=== PATIENT | female | born 1985 | race Caucasian/White ===

== ENCOUNTER 2018-01-27 18:12 | Emergency (ER) | payer OTHER, MEDICAID, SELFPAY ==
[2018-01-27 18:14] VITALS: BP 116/71; PULSE 124; RESP 20; TEMP 37.3; O2SAT 100
--- NOTE | 2018-01-27 18:20 | DI.RAD.S_ITS ---
PROCEDURE: XR ACUTE ABDOMEN SERIES INDICATIONS: abd pain/constipation/vomiting TECHNIQUE: One view chest and two views of the abdomen were acquired. COMPARISON: None. FINDINGS: Surgical changes and devices: None. Chest: Lungs are clear. Heart size is normal. No pleural effusions. No pneumoperitoneum. Abdomen: Bowel gas pattern is normal. No suspicious calcifications. Visualized solid organ contours appear normal. There is suggestion of fecal impaction in the region of sigmoid colon and rectum. Bones: No suspicious bony lesions. IMPRESSION: Suggestion of fecal impaction in rectosigmoid colon. No gross free air. Dictated by: Jose Kingsley M.D. on 01/27/2018 at 19:09 Approved by: Jose Kingsley M.D. on 01/27/2018 at 19:10
--- NOTE | 2018-01-27 20:14 | ED.ABDPAIN ---
HPI - Abdominal Pain General Chief Complaint: Abdominal Pain Stated Complaint: NO BOWEL MOVEMENT SEVERAL DAYS Time Seen by Provider: 01/27/18 19:51 Source: patient Mode of arrival: ambulatory Limitations: no limitations History of Present Illness HPI narrative: This is a 32-year-old female who comes in with complaint of 7 days of constipation patient states she has not been able have a bowel movement for 7 days just prior to my evaluation he states she had a very large bowel bruit resolved her abdominal pain and she feels much more comfortable now. Her abdominal pain was crampy, she still has some very slight residual crampy feeling but feels significantly better. Patient states that she has a history of IBS. She has had similar symptoms in the past. She was taking stool softeners as well as lactulose and several okyf-gys-hfmjkkr medications to try to help her have a bowel movement. She denies any black or bloody stool. She states it was a very large bowel movement. She denies any fevers. She has had some nausea and a little bit of vomiting last night but none today. She denies any abdominal surgeries or prior surgeries. Patient states that she was having a little bit of difficulty emptying her bladder but after the bowel movement that seems back to normal. Patient and I did review her films and the findings. She defers any further workup and would like to be discharged home. MD complaint: abdominal pain Onset (ago): day(s) Pain Consistency: constant Quality: cramping Relieving factors: bowel movement Associated symptoms: constipation Related Data Home Medications Medication Instructions Recorded Confirmed [PROPRANOLOL] 1 mg PO TID #0 11/02/10 clonazepam [Klonopin] 1 mg PO TID #0 11/02/10 carbamazepine [Epitol] 200 mg PO BID 01/27/18 01/27/18 Allergies Allergy/AdvReac Type Severity Reaction Status Date / Time buspirone Allergy Verified 01/27/18 18:17 latex Allergy Verified 01/27/18 18:17 Review of Systems Review of Systems All systems reviewed & are unremarkable except as noted in HPI and below Constitutional Denies chills, Denies fever(s), Denies lethargy and Denies weakness Cardiovascular Denies chest pain, Denies irregular heart rhythm, Denies lightheadedness, Denies palpitations, Denies dyspnea, Denies dyspnea on exertion and Denies orthopnea Respiratory Denies cough, Denies dyspnea, Denies dyspnea on exertion and Denies wheezing Gastrointestinal Gastrointestinal: Reports abdominal pain, Denies melena, Reports bloating, Denies hematochezia, Reports change in bowel habits, Reports constipation (No bowel movement for 7 days), Reports excessive flatus, Denies fecal incontinence, Denies diarrhea, Denies nausea and Reports vomiting Genitourinary Denies hematuria, Denies flank pain, Denies urinary incontinence and Denies urinary urgency Neurologic Denies weakness Endocrine Denies palpitations Allergic/Immunologic Denies wheezing Exam Initial Vital Signs Initial Vital Signs: Vital Signs Temperature 99.2 F 01/27/18 18:14 Pulse Rate 124 H 01/27/18 18:14 Respiratory Rate 20 01/27/18 18:14 Blood Pressure 116/71 01/27/18 18:14 Pulse Oximetry 100 01/27/18 18:14 Const General: cooperative, comfortable and well developed Nutritional Appearance: well nourished and obese Orientation: alert, awake, oriented x3 and not confused Chest Chest: normal inspection of the chest Resp Effort & Inspection: normal respiratory effort, able to speak in complete sentences, no respiratory distress and no use of accessory muscles Auscultation: clear to auscultation bilaterally, no rales, no rhonchi and no wheezes Cardio Rate: regular rate Rhythm: regular rhythm Heart Sounds: no click, no gallops, no murmurs and no rubs Pulses: normal peripheral pulses GI Inspection: non-distended Palpation: soft, no hepatosplenomegaly, No firm, No guarding, No mass, No pulsatile mass, No rigid and No tender Auscultation: normal bowel sounds Course Orders Ordered: ED Orders 01/27/18 18:20 XR acute abdomen series Stat Vital Signs - 8 hr 01/27/18 20:36 Temperature 98.1 F Pulse Rate 97 H Respiratory Rate 18 Blood Pressure 116/80 Pulse Oximetry 99 MDM - Abdominal Pain Imaging Data AAS: Radiologist's impression: Patient: Latricia Mariscal MR#: [id number] : 1985 Acct:[id number] Age/Sex: 32 / F Date of Service: 01/27/18 Loc: ED Accession Number: [id number] Procedure: XR acute abdomen series Ordering Provider: Jelly May D.O. PROCEDURE: XR ACUTE ABDOMEN SERIES INDICATIONS: abd pain/constipation/vomiting TECHNIQUE: One view chest and two views of the abdomen were acquired. COMPARISON: None. FINDINGS: Surgical changes and devices: None. Chest: Lungs are clear. Heart size is normal. No pleural effusions. No pneumoperitoneum. Abdomen: Bowel gas pattern is normal. No suspicious calcifications. Visualized solid organ contours appear normal. There is suggestion of fecal impaction in the region of sigmoid colon and rectum. Bones: No suspicious bony lesions. IMPRESSION: Suggestion of fecal impaction in rectosigmoid colon. No gross free air. Dictated by: Jose Kingsley M.D. on 01/27/2018 at 19:09 Approved by: Jose Kingsley M.D. on 01/27/2018 at 19:10 [facility] Narrative Medical decision making narrative: Patient was having symptoms that she has had previously before without having a bowel movement for approximately 1 week. Patient has been taking multiple gdog-qom-pbuqtiv or prescription medications in order to have a bowel movement and here in the emergency department she did have 1 just prior to being evaluated by myself patient symptomatically feels much better. Um her x-ray was reviewed on one view there were some air-fluid levels but on the additional views there were not present and patient had a very large bowel movement. Discussed with patient her imaging findings. We did give her the option of having some additional evaluation with lab work but she defers feels comfortable returning home at this time. Discharge Plan Departure Patient Disposition: Home Clinical Impression: Abdominal pain Discharge Date/Time: 01/27/18 20:37 Interventions: ED Discharge Assessment Last Done: 01/27/18 20:36 Instructions: DI for Abdominal Pain-Adult Activity Restrictions/Additional Instructions: Follow-up with her primary care in the next several days if your symptoms are not completely resolved. Continue to make sure you drink plenty of fluids and fiber. You may continue to use your home medications as needed for your symptoms. Prescriptions: No Action clonazepam [Klonopin] 1 MG tablet 1 mg PO TID Qty: 0 RF: 0 [PROPRANOLOL] 1 mg PO TID Qty: 0 RF: 0 carbamazepine [Epitol] 200 mg Tablet 200 mg PO BID RF: 0
--- NOTE | 2018-01-27 20:33 | PC.NURSE ---
pt stated I just went to the bathroom and had a huge #2. Provider notified, discharge orders received.
[2018-01-27 20:36] VITALS: BP 116/80; PULSE 97; RESP 18; TEMP 36.7; O2SAT 99
== END 2018-01-27 20:37 | disposition home or self-care (01) ==
PROVIDERS: Emergency Provider Emergency Medicine
DX: R10.9 Unspecified abdominal pain (principal)
CPT/HCPCS: 74022; 99282; 99283

== ENCOUNTER 2021-02-26 03:42 | Emergency (ER) | payer OTHER, MEDICAID, SELFPAY ==
[2021-02-26] VITALS (7 sets, daily range): BP systolic 150–169; BP diastolic 70–92; PULSE 100–109; RESP 18–20; TEMP 36.7; O2SAT 98–100; BMI 33.3
--- NOTE | 2021-02-26 03:55 | DI.RAD.S_ITS ---
PROCEDURE: XR KNEE LT 3V INDICATIONS: pain at fibular head after ankle inversion injury TECHNIQUE: 3 views of the knee were acquired. COMPARISON: [facility], CR, XR ANKLE LT MIN 3V, 02/26/2021, 4:01. FINDINGS: Bones: No fractures or dislocations. No suspicious bony lesions. The joint spaces are well preserved. Soft tissues: No joint effusion. No suspicious soft tissue calcifications. IMPRESSION: Negative for fracture. Note: No significant discrepancy from the preliminary report. Dictated by: Paul Hunt M.D. on 02/26/2021 at 7:24 Approved by: Paul Hunt M.D. on 02/26/2021 at 7:25
--- NOTE | 2021-02-26 03:55 | DI.RAD.S_ITS ---
PROCEDURE: XR ANKLE LT MIN 3V INDICATIONS: ankle injury, pain and swelling over lateral mall TECHNIQUE: 3 views of the ankle were acquired. COMPARISON: [facility], CR, XR KNEE LT 3V, 02/26/2021, 4:01. FINDINGS: Bones: No acute fractures or dislocations. There is focal irregularity seen involving the anterior distal tibia on the lateral view. Ankle mortise is normally aligned. No suspicious bony lesions. The talar dome demonstrates no trisha abnormality. Soft tissues: Soft tissue swelling is seen laterally. IMPRESSION: Soft tissue swelling can be seen, without an acute fracture seen by plain film. There is focal irregularity seen involving the anterior distal tibia, which is attributed to a remote fracture. Please correlate with focal tenderness. Note: No significant discrepancy from the preliminary report. Dictated by: Paul Hunt M.D. on 02/26/2021 at 7:25 Approved by: Paul Hunt M.D. on 02/26/2021 at 7:27
--- NOTE | 2021-02-26 04:22 | ED_ITS ---
HPI - Extremity Injury (Lower) General Chief Complaint: Extremity Injury, Lower Stated Complaint: left ankle injury today Time Seen by Provider: 02/26/21 03:49 Source: patient Mode of arrival: Ambulatory Limitations: no limitations History of Present Illness HPI Narrative: 35-year-old female daily smoker with noncontributory medical history presents with a chief complaint of a left ankle injury suffered last evening. She states that she was stepping off a log and inverted her left ankle and now has pain and swelling. Her pain is worse with ambulation and improves with rest. She denies any numbness, tingling or weakness. She denies any under injury such as knee, hip or back. Related Data Home Medications Medication Instructions Recorded Confirmed [PROPRANOLOL] 1 mg PO TID #0 11/02/10 clonazepam 1 mg tablet (Klonopin) 1 mg PO TID #0 11/02/10 carbamazepine 200 mg tablet 200 mg PO BID 01/27/18 01/27/18 (Epitol) Allergies Allergy/AdvReac Type Severity Reaction Status Date / Time buspirone Allergy Verified 01/27/18 18:17 latex Allergy Verified 01/27/18 18:17 Review of Systems Review of Systems Narrative: GENERAL: Denies chills, fatigue, malaise, fever, sweats. HEENT: Denies sinus pain, ear pain, sore throat, difficulty swallowing, dizziness. RESPIRATORY: Denies dyspnea, cough, wheezing, hemoptysis, sputum. CARDIOVASCULAR: Denies chest pain, palpitations, orthopnea, edema, GASTROINTESTINAL: Denies nausea, vomiting, abdominal pain, diarrhea, constipation, melena. : Denies dysuria, frequency, incontinence, hematuria, urinary retention. MUSCULOSKELETAL: See HPI SKIN: Denies rash, skin lesions, or other NEUROLOGIC: Denies weakness, headache, numbness, change in speech, confusion, seizures, incoordination. PSYCHIATRIC: No concerning psychosocial issues. 12 point review of systems is negative except for those stated above Patient History Social History Smoking Status: Current every day smoker Smoking Status: Current every day smoker alcohol intake frequency: 0-2 drinks per day Substance Use Type: marijuana Exam Narrative Exam Narrative: GEN: AOx3 and in mild distress EYES: Pupils are equal, round, and reactive to light and accommodation. Extraoccular muscles are intact bilaterally. There is no subconjunctival hemorrhage or exudate. CHEST: Lungs are clear to auscultation bilaterally and free of wheezes, rales, or rhonchi. Heart rate is regular rhythm, there are no murmurs, clicks, rubs, or gallops. There is no chest wall tenderness. ABD: Abdomen is soft and nontender. There is no guarding or rebound. Bowel sounds are normal in all 4 quadrants. There is no mass or organomegaly. EXT: Full but painful range of motion of left ankle with moderate swelling over lateral malleolus. No ligamentous instability, no numbness, tingling, cap refill and sensation intact. She does have minimal tenderness when palpating her fibular head but no pain on squeeze test to suggest a syndesmotic injury SKIN: Warm, pink, and dry. No erythema or rash Initial Vital Signs Initial Vital Signs: Vital Signs Pulse Rate 106 H 02/26/21 03:49 Blood Pressure 169/92 H 02/26/21 03:49 Pulse Oximetry 100 02/26/21 03:49 Procedures Orthopedic Splinting/Casting Injury #1: Side: left Lower Extremity Injury Location: ankle Lower Extremity Immobilizer: AirCast Other Orthopedic Equipment: crutches Post splinting neuro exam: intact Post splinting vascular exam: intact Placed by: Nursing Course Orders Ordered: ED Orders 02/26/21 03:55 XR ankle LT min 3V Stat XR knee LT 3V Stat Vital Signs Vital signs: Vital Signs - 8 hr 02/26/21 03:49 02/26/21 03:52 02/26/21 04:00 Temperature 98.1 F Pulse Rate 106 H 109 H 105 H Pulse Rate [Bilateral Dorsalis Pedis] Respiratory Rate 20 Blood Pressure 169/92 H 169/92 H Pulse Oximetry 100 100 99 02/26/21 04:30 02/26/21 04:41 02/26/21 04:49 Temperature Pulse Rate 100 H 108 H Pulse Rate [Bilateral Dorsalis Pedis] 100 H Respiratory Rate Blood Pressure 150/70 H Pulse Oximetry 98 99 02/26/21 04:58 Temperature Pulse Rate 102 H Pulse Rate [Bilateral Dorsalis Pedis] Respiratory Rate 18 Blood Pressure 150/70 H Pulse Oximetry 99 MDM - Extremity Injury (Lower) Imaging Data Extremity x-ray #1: Radiologist's Impression: [address] [address] XRay Report Signed Patient: Latricia Mariscal MR#: [id number] : 1985 Acct:[id number] Age/Sex: 35 / F Date of Service: 02/26/21 Loc: ED Accession Number: [id number] ?? Procedure: XR ankle LT min 3V Ordering Provider: Leland Reynolds D.O. PROCEDURE:? XR ANKLE LT MIN 3V ? INDICATIONS:? ankle injury, pain and swelling over lateral mall ? TECHNIQUE:? 3 views of the ankle were acquired.? ? COMPARISON:? [facility], CR, XR KNEE LT 3V, 02/26/2021, 4:01. ? FINDINGS:? ? Bones:? No acute fractures or dislocations.? There is focal irregularity seen involving the anterior distal tibia on the lateral view.? Ankle mortise is normally aligned.? No suspicious bony lesions.? The talar dome demonstrates no trisha abnormality.? ? Soft tissues:? Soft tissue swelling is seen laterally. ? ? IMPRESSION:? Soft tissue swelling can be seen, without an acute fracture seen by plain film. ? There is focal irregularity seen involving the anterior distal tibia, which is attributed to a remote fracture.? Please correlate with focal tenderness. ? ? Note: No significant discrepancy from the preliminary report. ? Dictated by: Paul Hunt M.D. on 02/26/2021 at 7:25 ? ? Approved by: Paul Hunt M.D. on 02/26/2021 at 7:27? Discharge Plan Departure Patient Disposition: Home Clinical Impression: Ankle sprain and strain Instructions: Ankle Sprain Activity Restrictions/Additional Instructions: *You have been diagnosed with [left ankle sprain *What to do: *Please continue to take your regular medications as directed. [ ] New medication prescriptions sent to your pharmacy: [ ] [ ] New medication written as a paper prescription [x] Tylenol and occasional Motrin for pain *Return to Emergency Department if you should have any new, worsening or concerning symptoms, such as [worsening pain, significant swelling, cold extremities, numbness, tingling, weakness or other bothersome symptoms Splint Care: Keep splint clean and dry. Elevated affected body part to decrease swelling. OK to use ice pack on the affected body part. Use for 15-20 minutes each time, for 5-6x per day. If you develop worsening pain, numbness, tingling, discoloration of the affected body part, loosen the splint by loosening the CITLALLI wrap, and either see your doctor for an urgent re-assessment, or return to the Emergency Department. Return to the Emergency Department for any new or worsening symptoms. Prescriptions: No Action clonazepam [Klonopin] 1 MG tablet 1 mg PO TID Qty: 0 RF: 0 [PROPRANOLOL] 1 mg PO TID Qty: 0 RF: 0 carbamazepine [Epitol] 200 mg Tablet 200 mg PO BID RF: 0
== END 2021-02-26 04:59 | disposition home or self-care (01) ==
PROVIDERS: Emergency Provider Emergency Medicine
DX: S93.402A Sprain of unspecified ligament of left ankle, initial encounter (principal); S96.912A Strain of unspecified muscle and tendon at ankle and foot level, left foot, initial encounter
CPT/HCPCS: 73562; 73610; 99283

== ENCOUNTER → 2021-09-18 13:14 | Outpatient (CLI) | payer OTHER, MEDICAID, SELFPAY ==
--- NOTE | 2021-09-18 13:17 | DI.MRI.S_ITS ---
PROCEDURE: MR LUMBAR SPINE WO CON INDICATIONS: Radiculopathy, lumbar region TECHNIQUE: Noncontrast sagittal T1 spin echo and T2 fast echo, sagittal STIR, and T2 fast spin echo through the lumbar spine. In cases with scoliosis, additional coronal T2 fast spin echo may be performed. COMPARISON: [facility], MR LUMBAR SPINE WO CON, 01/12/2016, 12:44. FINDINGS: Image quality: Excellent. Alignment and Curvature: There is normal bony alignment. Bone Marrow: Marrow is of normal overall signal. No acute vertebral body compression fractures. Spinal Cord: Conus medullaris terminates at the L1-L2 level. Visualized cord demonstrates normal signal and size. Paraspinous Soft Tissues: No paravertebral masses. T11-T12: No canal stenosis or foraminal stenosis. T12-L1: No canal stenosis or foraminal stenosis. L1-L2: Minimal disc bulge. Mild facet hypertrophy. Macro canal L2-L3: Moderate diffuse disc bulge. Facet and ligament hypertrophy. Mild canal stenosis. No significant foraminal stenosis. L3-L4: Mild disc bulge. Facet hypertrophy. Mild canal stenosis or foraminal stenosis. L4-L5: Mild disc bulge. Facet hypertrophy. No canal stenosis or foraminal stenosis. L5-S1: Development of a central posterior broad-based disc protrusion which abuts the bilateral S1 nerve roots in the lateral recesses. This results in mild canal stenosis. Vycj-nm-[id number] bilateral foraminal stenosis. IMPRESSION: 1. Interval development of a broad-based central posterior disc protrusion at L5-S1, abutting the bilateral S1 nerve roots, resulting in mild canal stenosis. 2. Multilevel facet arthropathy. 3. There is mild canal stenosis at L3-L4. Dictated by: Diego Overton M.D. on 09/18/2021 at 15:45 Approved by: Diego Overton M.D. on 09/18/2021 at 15:51
== END ==
PROVIDERS: PCP Internal Medicine; Referring Provider Internal Medicine; Visit Provider Internal Medicine
DX: M51.17 Intervertebral disc disorders with radiculopathy, lumbosacral region (principal); M51.16 Intervertebral disc disorders with radiculopathy, lumbar region; M47.27 Other spondylosis with radiculopathy, lumbosacral region; M47.26 Other spondylosis with radiculopathy, lumbar region; M48.07 Spinal stenosis, lumbosacral region; M48.061 Spinal stenosis, lumbar region without neurogenic claudication
CPT/HCPCS: 72148